=== PATIENT | male | born 1990 | race Caucasian/White ===

== ENCOUNTER 2016-10-02 17:52 | Emergency (ER) | payer MEDICAID, OTHER | END 2016-10-02 18:47 | disposition home or self-care (01) | LOC: NAV ERS 17:52 | DX: J02.9 Acute pharyngitis, unspecified (principal); E03.9 Hypothyroidism, unspecified; G40.909 Epilepsy, unspecified, not intractable, without status epilepticus; Q90.9 Down syndrome, unspecified; Z79.899 Other long term (current) drug therapy | CPT/HCPCS: 87081; 87430; 99283 ==